=== PATIENT | male | born 1980 | race Caucasian/White ===

== ENCOUNTER 2023-03-21 16:23 | Emergency (ER) | payer BC ==
[~2023-03-21] VITALS: Ht 180.3 cm; Wt 70.0 kg
[2023-03-21 16:31] VITALS: O2SAT 100
[2023-03-21] MEDS ORDERED: BACITRACIN ZINC OINT UDPKT TOP ONE (17:30)
[2023-03-21] MEDS ORDERED: TETANUS, DIPHTHERIA, PERTUSSIS VAC/PF 0.5ML (>10YR OLD) IM ONE (17:30)
[2023-03-21] MEDS ORDERED: LIDOCAINE HCL/PF 1% 10 MG/ML 5ML VIAL INFIL ONE (17:30)
[2023-03-21] MEDS ORDERED: IBUP-2028 MT (19:08)
[2023-03-21] MEDS ORDERED: AMOX1TAB16 MT (19:08)
[2023-03-21] MEDS ORDERED: BO1 TP (19:08)
[2023-03-21 19:41] VITALS: BP 118/73; PULSE 71; RESP 14; TEMP 97.9
== END 2023-03-21 19:44 | disposition home or self-care (01) ==
LOC: ER 16:23
DX: S61.412A Laceration without foreign body of left hand, initial encounter (principal); S61.411A Laceration without foreign body of right hand, initial encounter; Z98.890 Other specified postprocedural states; W54.0XXA Bitten by dog, initial encounter; Y93.89 Activity, other specified; Y92.89 Other specified places as the place of occurrence of the external cause; Y99.8 Other external cause status
CPT/HCPCS: 73130; 90715; 12002; 90471; 99283; J3490; Z7610 ×3